=== PATIENT | male | born 1965 | race Hispanic/Latino ===

== ENCOUNTER 2019-07-03 14:04 | Emergency (ER) | payer OTHER ==
[2019-07-03] MEDS ORDERED: DEXAMETHASONE SOD PHOSPHATE 10MG/ML 1ML VIAL ONE (14:50)
== END 2019-07-03 15:15 | disposition home or self-care (01) ==
LOC: EDH 14:04
DX: M54.42 Lumbago with sciatica, left side (principal)
CPT/HCPCS: 96372; 99283; J1100